=== PATIENT | male | born 1955 | race Caucasian/White ===

== ENCOUNTER → 2018-02-17 13:24 | Outpatient (CLI) | payer OTHER, SELFPAY ==
[2018-02-17 14:46] LABS: Cholesterol 218 mg/dL (140-199); HDL Cholesterol 57 mg/dL (40-60); LDL Cholesterol Calculated 131 mg/dL (<100); Triglycerides 151 mg/dL (35-150)
== END ==
PROVIDERS: Family Provider Family Medicine; PCP Family Medicine; Visit Provider Family Medicine
DX: E78.00 Pure hypercholesterolemia, unspecified (principal)
CPT/HCPCS: 36415; 80061

== ENCOUNTER → 2018-04-24 10:28 | Outpatient (CLI) | payer OTHER, SELFPAY ==
[2018-04-24 15:24] LABS: Cholesterol 180 mg/dL (140-199); HDL Cholesterol 50 mg/dL (40-60); LDL Cholesterol Calculated 105 mg/dL (<100); Triglycerides 124 mg/dL (35-150)
[2018-04-26 17:19] LABS: PSA Post Prostatectomy 0.82 ng/mL
[2018-04-26 22:01] LABS: Testosterone, Free 0.48 ng/dL
== END ==
PROVIDERS: PCP Family Medicine Addiction Medicine; Visit Provider Family Medicine Addiction Medicine
DX: E78.00 Pure hypercholesterolemia, unspecified (principal); R68.82 Decreased libido; Z00.00 Encounter for general adult medical examination without abnormal findings
CPT/HCPCS: 36415; 80061; 84153; 84402

== ENCOUNTER 2018-10-08 16:32 | Emergency (ER) | payer OTHER, SELFPAY ==
[2018-10-08 16:40] VITALS: BP 194/86; PULSE 61; RESP 16; TEMP 36.5; O2SAT 98; BMI 33.2
--- NOTE | 2018-10-08 16:56 | ED.MALEGU ---
HPI - Male Genitourinary General Chief complaint: Urogenital-Male Stated complaint: says kidney stopping or maybe appendix Time Seen by Provider: 10/08/18 16:38 Source: patient Mode of arrival: ambulatory Limitations: no limitations History of Present Illness HPI Narrative: Patient is a 63-year-old male presents with right-sided flank pain radiating to his groin. It started last evening he says it is fairly constant but it comes in waves. He feels like appendicitis. He has been nauseated but no vomiting. No fever. Related Data Previous Rx's Medication Instructions Recorded hydroxyzine HCl 0 mg PO SEE INSTRUCTIONS #30 tab 08/25/17 atorvastatin 40 mg tablet 40 mg PO HS #90 tab 11/15/17 lisinopril 40 mg tablet 40 mg PO QDAY #90 tab 07/17/18 hydrocodone-acetaminophen [[place]] 1 tab PO Q6H PRN #10 tab 10/08/18 ondansetron 4 mg PO Q6-8H PRN #10 tab 10/08/18 Allergies Allergy/AdvReac Type Severity Reaction Status Date / Time No Known Drug Allergies Allergy Verified 10/08/18 17:12 Review of Systems Review of Systems GENERAL: Denies chills, fatigue, malaise, fever, sweats, travel HEENT: Denies sinus pain, ear pain, sore throat, difficulty swallowing, neck pain RESPIRATORY: Denies dyspnea, cough, wheezing, hemoptysis, sputum. CARDIOVASCULAR: Denies chest pain, palpitations, orthopnea, edema GASTROINTESTINAL: Denies nausea, vomiting, abdominal pain, diarrhea, constipation, melena. : see HPI MUSCULOSKELETAL: Denies weakness, joint pain, or bony pain SKIN: No rash, no erythema, no pruritus NEUROLOGIC: Denies weakness, dizziness, headache, numbness, change in speech, confusion PSYCHIATRIC: No concerning psychosocial issues. 12 point review of systems is negative except for those stated above and HPI PFSH Medical History Hyperlipidemia (Acute) Hypertension (Acute) Surgical History History of vasectomy Family History (Updated 08/24/17 @ 00:00 by Angelo Love MD) Brother Cancer Mother Hypertension Stroke Family History Brother Cancer Mother Hypertension Stroke Exam Initial Vital Signs Initial Vital Signs: Vital Signs Temperature 97.7 F 10/08/18 16:40 Pulse Rate 61 10/08/18 16:40 Respiratory Rate 16 10/08/18 16:40 Blood Pressure 194/86 H 10/08/18 16:40 Pulse Oximetry 98 10/08/18 16:40 GENERAL: Tearful adult male in a wheelchair appears in pain HEENT: Head atraumatic,EOMI, pupils reactive, face symmetric, [moist] mucous membranes CARDIOVASCULAR: Regular rate and rhythm without murmurs, rubs or gallops. RESPIRATORY: Breath sounds equal bilaterally, no wheezes rales or rhonchi. ABDOMEN: Soft, right lower quadrant pain, right flank pain no guarding or rebound EXTREMITIES: Normal range of motion, no clubbing or edema. Neurovascularly intact NEUROLOGICAL: Alert and oriented x4.Normal gait and speech. Cranial nerves II through XII grossly intact. SKIN: Warm, dry, no laceration, no petechiae, no rashes or lesions. Course Orders Ordered: Discontinued Medications Hydromorphone HCl (Dilaudid) 0.5 mg IV NOW ONE Stop: 10/08/18 17:01 Last Admin: 10/08/18 17:11 Dose: 0.5 mg Sodium Chloride (Normal Saline 0.9%) 1,000 mls @ 1,000 mls/hr IV CONT ZOYA Last Infusion: 10/08/18 18:25 Dose: 0 mls/hr Admin: 10/08/18 17:11 Dose: 1,000 mls/hr Ondansetron HCl (Zofran) 4 mg IV NOW ONE Stop: 10/08/18 17:01 Last Admin: 10/08/18 17:10 Dose: 4 mg Vital Signs - 8 hr 10/08/18 16:40 Temperature 97.7 F Pulse Rate 61 Respiratory Rate 16 Blood Pressure 194/86 H Pulse Oximetry 98 MDM - Male Genitourinary Lab Data Attestation: I reviewed the patient's lab results. Result diagrams: 10/08/18 16:53 10/08/18 16:53 Lab Results 10/08/18 10/08/18 10/08/18 Range/Units 16:53 16:53 18:07 WBC 9.7 (4.5-11.0) X10^3/uL RBC 5.09 (4.5-5.9) X10^6/uL Hgb 15.8 (13.5-17.5) g/dL Hct 46.5 (41-53) % MCV 91.3 (80-100) fL MCH 30.9 (26-34) PG MCHC 33.9 (30-36) % RDW 12.7 (11.6-14.8) % Plt Count 183 (150-400) X10^3/uL Neut % (Auto) 84.7 H (50-75) % Lymph % (Auto) 5.5 L (25-40) % [place] % (Auto) 9.3 (3-14) % Eos % (Auto) 0.3 L (2-4) % Baso % (Auto) 0.2 (0-2) % Neut # (Auto) 8200 H (8150-0196) /uL Lymph # (Auto) 500 L (3403-3525) /uL [place] # (Auto) 900 (0-900) /uL Eos # (Auto) 0 (0-450) /uL Baso # (Auto) 0 (0-100) /uL Sodium 137 (137-145) mmol/L Potassium 3.8 (3.4-5.1) mmol/L Chloride 104 (98-107) mmol/L Carbon Dioxide 23 (22-32) mmol/L BUN 21 H (9-20) mg/dL Creatinine 1.80 H (0.66-1.25) mg/dL Estimated GFR 38.3 L (>60) mL/min BUN/Creatinine Ratio 11.7 (6-22) Glucose 128 H (80-110) mg/dL Calcium 10.4 H (8.4-10.2) mg/dL Total Bilirubin 1.3 (0.2-1.3) mg/dL AST 25 (17-59) IU/L ALT 40 (21-72) IU/L Alkaline Phosphatase 63 (38-126) U/L Total Protein 7.4 (6.3-8.2) g/dL Albumin 4.3 (3.5-5.0) g/dL Globulin 3.1 (1.7-4.1) g/dL Albumin/Globulin Ratio 1.4 (1.0-2.8) Lipase 401 H (23-300) U/L Urine Ictotest Negative (Negative) Urine RBC 10-30/hpf H (0-5/HPF) Urine WBC 1-5/hpf (0-5/HPF) Ur Squamous Epith Cells None seen (0-5/HPF) Calcium Oxalate Crystal Few H Urine Bacteria Moderate (10-30) H (None) Hyaline Casts 0-1/lpf (None) Ur Culture Indicated? Cult not indicated Urine Dip Bedside Urine Glucose Negative Bedside Urine Bilirubin + 1 Bedside Urine Ketone - Negative Urine Specific [place] 1.030 Bedside Urine Occult Blood +++ Bedside Urine pH 5.0 Bedside Urine Protein +/- 15 Bedside Urine Urobilinogen +/- 1mg Bedside Urine Nitrite - Negative Bedside Urine Leukocytes - Negative Esterase Imaging Data CT scan - abdomen: Radiologist's impression: PROCEDURE: CT KIDNEY URETER BLADDER (KUB) INDICATIONS: right flank pain TECHNIQUE: Noncontrast 5 mm thick sections acquired from the diaphragms to the symphysis. 5 mm thick coronal and sagittal reformats were then performed. For radiation dose reduction, the following was used: automated exposure control, adjustment of mA and/or kV according to patient size. COMPARISON: [facility], [place], RENAL COMPLETE, 04/28/2016, 13:33. [facility], [place], KIDNEY/ URETER/BLADDER, 04/21/2016, 10:20. FINDINGS: Image quality: Excellent. Lung bases: Lung bases are clear. Heart size is normal. Urinary system: There is a 3 mm obstructing stone seen within the right mid ureter, with associated moderate right-sided hydronephrosis and hydroureter. No left-sided hydronephrosis is seen. There is a 1 mm nonobstructing stone seen on the right side. The kidneys demonstrate normal sizes. No focal bladder wall thickening is seen. No calcified bladder stones are seen. Other solid organs: Liver is normal in size. Gallbladder wall is not thickened. Pancreas is normal in contours. Spleen is normal in size. No adrenal nodules. Peritoneum and bowel: Unenhanced bowel loops demonstrate normal wall thickness and caliber. No free fluid or air. Incidental note is made of a normal-appearing appendix. Diverticulosis is seen, without findings of active diverticulitis. Nodes and vessels: No retroperitoneal or mesenteric adenopathy by size criteria. Aorta and inferior vena cava are normal in caliber. Atherosclerotic calcification is noted. Abdominal wall: No ventral hernias. Pelvis: No free pelvic fluid. No inguinal hernias or adenopathy. Bones: No suspicious bony lesions. No vertebral body compression fractures. IMPRESSION: There is a 3 mm obstructing stone seen within the mid right ureter. There is associated moderate right-sided hydroureter and hydronephrosis. There is a 1 mm nonobstructing right-sided kidney stone seen. Incidental note is made of: Normal appendix Diverticulosis is seen, without findings of active diverticulitis. Dictated by: Virgilio Eduardo M.D. on 10/08/2018 at 16:29 Discharge Plan Departure Patient Disposition: Home Clinical Impression: Kidney stone on right side Discharge Date/Time: 10/08/18 18:27 Interventions: ED Discharge Assessment Last Done: 10/08/18 18:25 Instructions: DI for Kidney Stones Activity Restrictions/Additional Instructions: *Increase fluid intake *Call PCP to schedule follow-up. You may require urology consultation Strain urine, try to catch stone -If you should have fever, or pain is uncontrolled with medication at home or any other concerning symptoms return to ER for further evaluation MEDICATIONS Take naproxen 500 mg mg every 12 hours as needed for pain Take [place] every 6 hours if needed for severe pain Take Zofran every 4-6 hours if needed for nausea--sent to [facility] CONTROLLED SUBSTANCE DISCHARGE (Narcotoic/benzodiazepine) 1. You have been prescribed narcotic medications, it does have acetaminophen/Tylenol/paracetamol in it so do not take extra Tylenol or Tylenol containing products 2. Please understand that we cannot provide further refills of narcotics, benzodiazepines or controlled substances through the ED and her pain management will need to be through your provider. 3. While on these medications you cannot drive or operate heavy machinery. 4. You cannot sign legal documents or perform any duties such as this. 5. As long as you're taking opiate pain medications he should also be taking a stool softener such as Colace, Dulcolax, MiraLAX or prune juice, to help avoid constipation. Prescriptions: New hydrocodone-acetaminophen [[place]] 5-325 mg tablet 1 tab PO Q6H PRN (Reason: pain) Qty: 10 RF: 0 ondansetron 4 mg tablet,disintegrating 4 mg PO Q6-8H PRN (Reason: nausea and vomiting) Qty: 10 RF: 0 No Action hydroxyzine HCl 25 MG tablet PO SEE INSTRUCTIONS Qty: 30 RF: 5 atorvastatin 40 mg tablet 40 mg PO HS Qty: 90 RF: 1 lisinopril 40 mg tablet 40 mg PO QDAY Qty: 90 RF: 0 Referrals: Reuben Mcbride MD [Primary Care Provider] -
--- NOTE | 2018-10-08 17:00 | ED_ITS ---
HPI - Male Genitourinary General Chief complaint: Urogenital-Male Stated complaint: says kidney stopping or maybe appendix Time Seen by Provider: 10/08/18 16:38 Source: patient Mode of arrival: ambulatory Limitations: no limitations History of Present Illness HPI Narrative: Patient is a 63-year-old male presents with right-sided flank pain radiating to his groin. It started last evening he says it is fairly con stant but it comes in waves. He feels like appendicitis. He has been nauseated but no vomiting. No fever. Related Data Previous Rx's Medication Instructions Recorded hydroxyzine HCl 0 mg PO SEE INSTRUCTIONS #30 tab 08/25/17 atorvastatin 40 mg tablet 40 mg PO HS #90 tab 11/15/17 lisinopril 40 mg tablet 40 mg PO QDAY #90 tab 07/17/18 hydrocodone-acetaminophen [[place]] 1 tab PO Q6H PRN #10 tab 10/08/18 ondansetron 4 mg PO Q6-8H PRN #10 tab 10/08/18 Allergies Allergy/AdvReac Type Severity Reaction Status Date / Time No Known Drug Allergies Allergy Verified 10/08/18 17:12 Review of Systems Review of Systems GENERAL: Denies chills, fatigue, malaise, fever, sweats, travel HEENT: Denies sinus pain, ear pain, sore throat, difficulty swallowing, neck pain RESPIRATORY: Denies dyspnea, cough, wheezing, hemoptysis, sputum. CARDIOVASCULAR: Denies chest pain, palpitations, orthopnea, edema GASTROINTESTINAL: Denies nausea, vomiting, abdominal pain, diarrhea, constipation, melena. : see HPI MUSCULOSKELETAL: Denies weakness, joint pain, or bony pain SKIN: No rash, no erythema, no pruritus NEUROLOGIC: Denies weakness, dizziness, headache, numbness, change in speech, confusion PSYCHIATRIC: No concerning psychosocial issues. 12 point review of systems is negative except for those stated above and HPI PFSH Medical History Hyperlipidemia (Acute) Hypertension (Acute) Surgical History History of vasectomy Family History (Updated 08/24/17 @ 00:00 by Angelo Love MD) Brother Cancer Mother Hypertension Stroke Family History Brother Cancer Mother Hypertension Stroke Exam Initial Vital Signs Initial Vital Signs: Vital Signs Temperature 97.7 F 10/08/18 16:40 Pulse Rate 61 10/08/18 16:40 Respiratory Rate 16 10/08/18 16:40 Blood Pressure 194/86 H 10/08/18 16:40 Pulse Oximetry 98 10/08/18 16:40 GENERAL: Tearful adult male in a wheelchair appears in pain HEENT: Head atraumatic,EOMI, pupils reactive, face symmetric, [moist] mucous membranes CARDIOVASCULAR: Regular rate and rhythm without murmurs, rubs or gallops. RESPIRATORY: Breath sounds equal bilaterally, no wheezes rales or rhonchi. ABDOMEN: Soft, right lower quadrant pain, right flank pain no guarding or rebound EXTREMITIES: Normal range of motion, no clubbing or edema. Neurovascularly intact NEUROLOGICAL: Alert and oriented x4.Normal gait and speech. Cranial nerves II through XII grossly intact. SKIN: Warm, dry, no laceration, no petechiae, no rashes or lesions. Course Orders Ordered: Discontinued Medications Hydromorphone HCl (Dilaudid) 0.5 mg IV NOW ONE Stop: 10/08/18 17:01 Last Admin: 10/08/18 17:11 Dose: 0.5 mg Sodium Chloride (Normal Saline 0.9%) 1,000 mls @ 1,000 mls/hr IV CONT ZOYA Last Infusion: 10/08/18 18:25 Dose: 0 mls/hr Admin: 10/08/18 17:11 Dose: 1,000 mls/hr Ondansetron HCl (Zofran) 4 mg IV NOW ONE Stop: 10/08/18 17:01 Last Admin: 10/08/18 17:10 Dose: 4 mg Vital Signs - 8 hr 10/08/18 16:40 Temperature 97.7 F Pulse Rate 61 Respiratory Rate 16 Blood Pressure 194/86 H Pulse Oximetry 98 MDM - Male Genitourinary Lab Data Attestation: I reviewed the patient's lab results. Result diagrams: 10/08/18 16:53 10/08/18 16:53 Lab Results 10/08/18 10/08/18 10/08/18 Range/Units 16:53 16:53 18:07 WBC 9.7 (4.5-11.0) X10^3/uL RBC 5.09 (4.5-5.9) X10^6/uL Hgb 15.8 (13.5-17.5) g/dL Hct 46.5 (41-53) % MCV 91.3 (80-100) fL MCH 30.9 (26-34) PG MCHC 33.9 (30-36) % RDW 12.7 (11.6-14.8) % Plt Count 183 (150-400) X10^3/uL Neut % (Auto) 84.7 H (50-75) % Lymph % (Auto) 5.5 L (25-40) % [place] % (Auto) 9.3 (3-14) % Eos % (Auto) 0.3 L (2-4) % Baso % (Auto) 0.2 (0-2) % Neut # (Auto) 8200 H (9645-7087) /uL Lymph # (Auto) 500 L (2704-6441) /uL [place] # (Auto) 900 (0-900) /uL Eos # (Auto) 0 (0-450) /uL Baso # (Auto) 0 (0-100) /uL Sodium 137 (137-145) mmol/L Potassium 3.8 (3.4-5.1) mmol/L Chloride 104 (98-107) mmol/L Carbon Dioxide 23 (22-32) mmol/L BUN 21 H (9-20) mg/dL Creatinine 1.80 H (0.66-1.25) mg/dL Estimated GFR 38.3 L (>60) mL/min BUN/Creatinine Ratio 11.7 (6-22) Glucose 128 H (80-110) mg/dL Calcium 10.4 H (8.4-10.2) mg/dL Total Bilirubin 1.3 (0.2-1.3) mg/dL AST 25 (17-59) IU/L ALT 40 (21-72) IU/L Alkaline Phosphatase 63 (38-126) U/L Total Protein 7.4 (6.3-8.2) g/dL Albumin 4.3 (3.5-5.0) g/dL Globulin 3.1 (1.7-4.1) g/dL Albumin/Globulin Ratio 1.4 (1.0-2.8) Lipase 401 H (23-300) U/L Urine Ictotest Negative (Negative) Urine RBC 10-30/hpf H (0-5/HPF) Urine WBC 1-5/hpf (0-5/HPF) Ur Squamous Epith Cells None seen (0-5/HPF) Calcium Oxalate Crystal Few H Urine Bacteria Moderate (10-30) H (None) Hyaline Casts 0-1/lpf (None) Ur Culture Indicated? Cult not indicated Urine Dip Bedside Urine Glucose Negative Bedside Urine Bilirubin + 1 Bedside Urine Ketone - Negative Urine Specific [place] 1.030 Bedside Urine Occult Blood +++ Bedside Urine pH 5.0 Bedside Urine Protein +/- 15 Bedside Urine Urobilinogen +/- 1mg Bedside Urine Nitrite - Negative Bedside Urine Leukocytes - Negative Esterase Imaging Data CT scan - abdomen: Radiologist's impression: PROCEDURE: CT KIDNEY URETER BLADDER (KUB) INDICATIONS: right flank pain TECHNIQUE: Noncontrast 5 mm thick sections acquired from the diaphragms to the symphysis. 5 mm thick coronal and sagittal reformats were then performed. For radiation dose reduction, the following was used: automated exposure control, adjustment of mA and/or kV according to patient size. COMPARISON: [facility], [place], RENAL COMPLETE, 04/28/2016, 13:33. [facility], [place], KIDNEY/ URETER/BLADDER, 04/21/2016, 10:20. FINDINGS: Image quality: Excellent. Lung bases: Lung bases are clear. Heart size is normal. Urinary system: There is a 3 mm obstructing stone seen within the right mid ureter, with associated moderate right-sided hydronephrosis and hydroureter. No left-sided hydronephrosis is seen. There is a 1 mm nonobstructing stone seen on the right side. The kidneys demonstrate normal sizes. No focal bladder wall thickening is seen. No calcified bladder stones are seen. Other solid organs: Liver is normal in size. Gallbladder wall is not thickened. Pancreas is normal in contours. Spleen is normal in size. No adrenal nodules. Peritoneum and bowel: Unenhanced bowel loops demonstrate normal wall thickness and caliber. No free fluid or air. Incidental note is made of a normal-appearing appendix. Diverticulosis is seen, without findings of active diverticulitis. Nodes and vessels: No retroperitoneal or mesenteric adenopathy by size criteria. Aorta and inferior vena cava are normal in caliber. Atherosclerotic calcification is noted. Abdominal wall: No ventral hernias. Pelvis: No free pelvic fluid. No inguinal hernias or adenopathy. Bones: No suspicious bony lesions. No vertebral body compression fractures. IMPRESSION: There is a 3 mm obstructing stone seen within the mid right ureter. There is associated moderate right-sided hydroureter and hydronephrosis. There is a 1 mm nonobstructing right-sided kidney stone seen. Incidental note is made of: Normal appendix Diverticulosis is seen, without findings of active diverticulitis. Dictated by: Virgilio Eduardo M.D. on 10/08/2018 at 16:29 Discharge Plan Departure Patient Disposition: Home Clinical Impression: Kidney stone on right side Discharge Date/Time: 10/08/18 18:27 Interventions: ED Discharge Assessment Last Done: 10/08/18 18:25 Instructions: DI for Kidney Stones Activity Restrictions/Additional Instructions: *Increase fluid intake *Call PCP to schedule follow-up. You may require urology consultation Strain urine, try to catch stone -If you should have fever, or pain is uncontrolled with medication at home or any other concerning symptoms return to ER for further evaluation MEDICATIONS Take naproxen 500 mg mg every 12 hours as needed for pain Take [place] every 6 hours if needed for severe pain Take Zofran every 4-6 hours if needed for nausea--sent to [facility] CONTROLLED SUBSTANCE DISCHARGE (Narcotoic/benzodiazepine) 1. You have been prescribed narcotic medications, it does have acetaminophen/Tylenol/paracetamol in it so do not take extra Tylenol or Tylenol containing products 2. Please understand that we cannot provide further refills of narcotics, benzodiazepines or controlled substances through the ED and her pain management will need to be through your provider. 3. While on these medications you cannot drive or operate heavy machinery. 4. You cannot sign legal documents or perform any duties such as this. 5. As long as you're taking opiate pain medications he should also be taking a stool softener such as Colace, Dulcolax, MiraLAX or prune juice, to help avoid constipation. Prescriptions: New hydrocodone-acetaminophen [[place]] 5-325 mg tablet 1 tab PO Q6H PRN (Reason: pain) Qty: 10 RF: 0 ondansetron 4 mg tablet,disintegrating 4 mg PO Q6-8H PRN (Reason: nausea and vomiting) Qty: 10 RF: 0 No Action hydroxyzine HCl 25 MG tablet PO SEE INSTRUCTIONS Qty: 30 RF: 5 atorvastatin 40 mg tablet 40 mg PO HS Qty: 90 RF: 1 lisinopril 40 mg tablet 40 mg PO QDAY Qty: 90 RF: 0 Referrals: Reuben Mcbride MD [Primary Care Provider] -
[2018-10-08 17:09] LABS: Add Manual Diff / Slide Review NO; Basophils Absolute Auto 0 /uL (0-100); Basophils Percent Auto 0.2 % (0-2); Eosinophils Absolute Auto 0 /uL (0-450); Eosinophils Percent Auto 0.3 % (2-4); Hematocrit 46.5 % (41-53); Hemoglobin 15.8 g/dL (13.5-17.5); Lymphocytes Absolute Auto 500 /uL (1100-4500); Lymphocytes Percent Auto 5.5 % (25-40); Mean Corpuscular HGB Conc 33.9 % (30-36); Mean Corpuscular Hemoglobin 30.9 PG (26-34); Mean Corpuscular Volume 91.3 fL (80-100); Monocytes Absolute Auto 900 /uL (0-900); Monocytes Percent Auto 9.3 % (3-14); Neutrophils Absolute Auto 8200 /uL (1500-7000); Neutrophils Percent Auto 84.7 % (50-75); Platelet Count 183 X10^3/uL (150-400); Red Blood Cell Count 5.09 X10^6/uL (4.5-5.9); Red Cell Distribution Width 12.7 % (11.6-14.8); White Blood Cell Count 9.7 X10^3/uL (4.5-11.0)
[2018-10-08] MEDS: ONDANSETRON 4 MG/2 ML INJ IV (17:10)
[2018-10-08] MEDS: HYDROMORPHONE 1 MG INJ 0.5 MG IV (17:11)
[2018-10-08] MEDS: SODIUM CHLORIDE 0.9% 1,000 ML 1000 ML IV (17:11)
[2018-10-08 17:13] LABS: Alanine Aminotransferase 40 IU/L (21-72); Albumin 4.3 g/dL (3.5-5.0); Albumin Globulin Ratio 1.4 (1.0-2.8); Alkaline Phosphatase 63 U/L (38-126); Aspartate Aminotransferase 25 IU/L (17-59); BUN Creatinine Ratio 11.7 (6-22); Bilirubin Total 1.3 mg/dL (0.2-1.3); Blood Urea Nitrogen 21 mg/dL (9-20); Calcium 10.4 mg/dL (8.4-10.2); Carbon Dioxide 23 mmol/L (22-32); Chloride 104 mmol/L (98-107); Estimated Glomerular Filt Rate 38.3 mL/min (>60); Globulin 3.1 g/dL (1.7-4.1); Glucose 128 mg/dL (80-110); HEMOLYSIS < 15 (0-50); Lipase 401 U/L (23-300); Potassium 3.8 mmol/L (3.4-5.1); Sodium 137 mmol/L (137-145); Total Protein 7.4 g/dL (6.3-8.2)
[2018-10-08 18:25] VITALS: BP 145/74; PULSE 63; RESP 16; O2SAT 99
[2018-10-08 18:31] LABS: Ictotest Urine Negative (Negative); RBC Urine 10-30/HPF (0-5/HPF); WBC Urine 1-5/HPF (0-5/HPF)
[2018-10-08 18:32] LABS: Bacteria Urine Moderate (10-30); Calcium Oxalate Crystals Urine Few; Culture Indicated Urine Cult Not Indicated; Hyaline Casts Urine 0-1/LPF; Squamous Epithelial Cell Urine None Seen (0-5/HPF)
== END 2018-10-08 18:27 | disposition home or self-care (01) ==
PROVIDERS: Emergency Provider Emergency Medicine; Family Provider Family Medicine; PCP Family Medicine Addiction Medicine
DX: N20.0 Calculus of kidney (principal)
CPT/HCPCS: 36591; 74176; 80053; 81003; 81015; 83690; 85025; 96361; 96374; 96375; 99283; 99284; J1170; J2405

== ENCOUNTER → 2018-11-30 11:17 | Outpatient (CLI) | payer OTHER, SELFPAY ==
[2018-11-30 12:51] LABS: Cholesterol 176 mg/dL (140-199); HDL Cholesterol 49 mg/dL (40-60); LDL Cholesterol Calculated 93 mg/dL (<100); Triglycerides 169 mg/dL (35-150)
== END ==
PROVIDERS: PCP Internal Medicine; Visit Provider Internal Medicine
DX: E78.00 Pure hypercholesterolemia, unspecified (principal)
CPT/HCPCS: 36415; 80061

== ENCOUNTER 2019-01-24 12:46 | Day surgery (SDC) | payer OTHER, SELFPAY ==
[2019-01-24] VITALS (11 sets, daily range): BP systolic 128–152; BP diastolic 72–82; PULSE 61–73; RESP 10–20; TEMP 36.4–36.9; O2SAT 94–99; BMI 33.2
[2019-01-24] MEDS: LACTATED RINGERS 1,000 ML 42 ML IV ×2 (13:20→16:16)
[2019-01-24] MEDS: metroNIDAZOLE 500 MG/100 ML PIGGYBACK 100 MG IV (13:21)
--- NOTE | 2019-01-24 13:21 | PM.HP.1 ---
History of Present Illness History of Present Illness Date Patient Seen: 01/24/19 Time Patient Seen: 13:21 Chief complaint: [id number] Narrative: Patient seen and examined Plan for internal sphincterotomy for persistent anal fissure Patient History Medical History (Updated 01/18/19 @ 13:35 by Fanny Montgomery RN) Anal fissure (Acute) Hyperlipidemia (Acute) Hypertension (Acute) Surgical History (Updated 01/18/19 @ 13:35 by Fanny Montgomery RN) History of arthroplasty of left shoulder (Acute ~2017) History of arthroplasty of right shoulder (Acute) History of vasectomy Family History Brother Cancer Mother Hypertension Stroke Social History household members: spouse Smoking Status: Former smoker alcohol intake: current Family & Social History Social History: household members spouse Tobacco & Substance use: Smoking Status Former smoker alcohol intake current alcohol intake frequency a few times a week Substance Use Type does not use Meds Home Medications and Allergies Home Medications Medication Instructions Recorded Confirmed Type atorvastatin 40 mg tablet 40 mg PO HS #90 tab 11/15/17 01/24/19 Rx lisinopril 40 mg tablet 40 mg PO QDAY #90 tab 07/17/18 01/24/19 Rx Allergies Allergy/AdvReac Type Severity Reaction Status Date / Time No Known Drug Allergies Allergy Verified 01/24/19 13:02 Exam Vital Signs (past 8 hours): - 01/24/19 13:12 Temperature 97.6 F Pulse Rate 65 Respiratory Rate 16 Blood Pressure 137/76 Pulse Oximetry 97 Oxygen Delivery Method Room Air
[2019-01-24] MEDS: CEFTRIAXONE 2 GM/50 ML FROZ.PIGGY IV (13:30)
--- NOTE | 2019-01-24 13:45 | SUR.OPER ---
Prone on padded OR bed, head in foam head support, gel chest rolls, gel pad under knees, pillow under lower legs, toes free of pressure, arms secured on padded arm boards at <90 degrees abduction. Safety belt at thigh.
[2019-01-24] MEDS: BUPIVACAINE 0.25% W/ EPI 30 ML VIAL INJ (13:55)
[2019-01-24] MEDS: DIBUCAINE 1% OINT 28 GM 1 APPLIC TOP (13:56)
--- NOTE | 2019-01-24 14:17 | PM.OP.1 ---
Operative Date/Time/Diagnoses Date of procedure: 01/24/19 Time of procedure: 14:17 Pre-op diagnosis: Anal fissure Post-op diagnosis: same Procedure & Clinicians Procedure: Left lateral internal sphincterotomy Same procedure as scheduled: Yes Indications: 63-year-old man presented with a right-sided anal fissure -markedly painful, did not heal after 2.5 months of nifedipine compound ointment applied diligently. Persistent symptoms. Surgeon: Jamal Barry Click Yes if Unassisted: Yes Anesthesia Type: General Operative Notes Findings: Tight internal anal sphincter -divided on the anterior left side Closure Type: not applicable Specimen(s): none sent Estimated Blood Loss (mL): 10 Procedure in detail: Patient was taken to the operating room his intubated without incident he was placed in the prone katelynn-knife position a time-out was completed. Digital rectal exam was performed there are no masses identified -even with the general anesthetic on board his anal sphincter was tight. The story rib retractor was placed within the rectum there was a large anal fissure on the right posterior side -with a small associated skin tag. The fissure itself was too close to the lateral position to do a lateral sphincterotomy on the right side. As a consequence I inspected the left side -there was a small pathologic hemorrhoid on the left lateral column -I chose a position free of the majority of the hemorrhoidal vessels just anterior of it. In this location identified the intersphincteric groove by palpation -given the high internal sphincter tone this was very obvious. I marked a 1.5 cm radial incision over it. This was opened using cut cautery. In the the process of this a small somewhat pronounced vein was bovied across -several attempts to coagulate it was not successful -region was subsequently controlled with a [id number] 3 0 chromic suture. With a minimal of blunt dissection the intersphincteric groove was clearly seen -the small blunt clamp was then inserted into the intersphincteric group with the tips directed medially, the clamp was then rotated to elevate the tips -scooping up the internal sphincter and elevating it towards the incision in the process. These white fibers of the internal sphincter were then divided with cautery. I then inspected the small cavity -there was several persistent internal sphincter fibers more superiorly in the vicinity of the dentate line -these were divided free hand with cautery. I then checked anal sphincter tone -this was much reduced. Using 30 mL of 0.25% bupivacaine with epinephrine perianal block was performed. Gelf[place]am was then obtained a rolled into a small roll lubricated with lidocaine ointment and inserted into the anal canal to provide some pressure hemostasis. Incision was left open Patient was extubated and brought to PACU without incident Complications: none Post-operative Condition: stable Disposition: PACU Plan for aftercare: PACU then home
[2019-01-24] MEDS: fentaNYL 100 MCG/2 ML INJ 50 MCG IV ×2 (14:26→14:40)
[2019-01-24] MEDS: KETOROLAC 30 MG/ML VIAL IV (14:39)
[2019-01-24] MEDS: HYDROMORPHONE 2 MG INJ 0.5 MG IV (14:50)
[2019-01-24] MEDS: OXYCODONE/ACETAMINOPHEN 5/325 TABLET 1 TAB PO ×2 (15:13→15:56)
--- NOTE | 2019-01-24 16:07 | SUR.PHASEII ---
Assumed care from
--- NOTE | 2019-01-24 16:08 | SUR.PHASEII ---
Assumed care bridgetteshane Mendosa, pt c/o return of his headache 09/29, 2nd percocet given. Report given to STEVE Valencia
== END 2019-01-24 16:30 | disposition home or self-care (01) ==
PROVIDERS: PCP Internal Medicine; Visit Provider Surgery
PROC: (CPT 46080; principal; 2019-01-24 14:45)
DX: K60.1 Chronic anal fissure (principal)
CPT/HCPCS: 46080; J0330; J0696; J1100; J1170; J1885; J2405; J2704; J3010

== ENCOUNTER → 2019-03-19 12:16 | Outpatient (CLI) | payer OTHER, SELFPAY ==
[2019-03-19 13:51] LABS: Blood Urea Nitrogen 19 mg/dL (9-20); Calcium 9.8 mg/dL (8.4-10.2); Carbon Dioxide 26 mmol/L (22-32); Chloride 104 mmol/L (98-107); Cholesterol 180 mg/dL (140-199); Estimated Glomerular Filt Rate > 60.0 mL/min (>60); Glucose 93 mg/dL (80-110); HDL Cholesterol 54 mg/dL (40-60); HEMOLYSIS < 15 (0-50); LDL Cholesterol Calculated 95 mg/dL (<100); Potassium 4.5 mmol/L (3.4-5.1); Sodium 138 mmol/L (137-145); Triglycerides 153 mg/dL (35-150)
[2019-03-19 14:22] LABS: Prostate Specific Antigen 0.589 ng/mL (0.10-4.00)
== END ==
PROVIDERS: PCP Internal Medicine; Visit Provider Student in an Organized Health Care Education/Training Program
DX: Z12.5 Encounter for screening for malignant neoplasm of prostate (principal); E78.5 Hyperlipidemia, unspecified; I10 Essential (primary) hypertension; E55.9 Vitamin D deficiency, unspecified
CPT/HCPCS: 36415; 80048; 80061; 82306; 84153

== ENCOUNTER → 2019-05-01 14:27 | Outpatient (CLI) | payer OTHER, SELFPAY ==
--- NOTE | 2019-05-01 14:28 | DI.RAD.S_ITS ---
PROCEDURE: XR FOOT RT MIN 3V INDICATIONS: Foot pain TECHNIQUE: 3 views of the foot were acquired. COMPARISON: None. FINDINGS: Bones: No fractures or dislocations. No suspicious bony lesions. Soft tissues: No tibiotalar joint effusion. Achilles tendon appears normal. IMPRESSION: No definite radiographic abnormality. If pain persists with conservative management, consider cross sectional imaging such as CT or MRI for further assessment. Dictated by: Gold MORALES Interpreted: Evonne Mcdonough MD on 05/01/2019 at 17:41 Approved by: Evonne Mcdonough M.D. on 05/01/2019 at 18:37
== END ==
PROVIDERS: PCP Student in an Organized Health Care Education/Training Program; Visit Provider Student in an Organized Health Care Education/Training Program
DX: M79.671 Pain in right foot (principal)
CPT/HCPCS: 73630

== ENCOUNTER → 2019-11-14 13:29 | Outpatient (CLI) | payer OTHER, SELFPAY ==
--- NOTE | 2019-11-14 | DI.MRI.S_ITS ---
PROCEDURE: MR LUMBAR SPINE WO CON INDICATIONS: Spondylosis without myelopathy or radiculopathy, l TECHNIQUE: Noncontrast sagittal T1 spin echo and T2 fast echo, sagittal STIR, axial T1 and T2 fast spin echo through the lumbar spine. In cases with scoliosis, additional coronal T2 fast spin echo may be performed. COMPARISON: [facility], MR, MR LUMBAR SPINE WITHOUT CONTRAST, 01/19/2018, 9:45. [facility], CR, XR LUMBAR SPINE 2 OR 3 VIEWS, 01/09/2018, 9:44. FINDINGS: Image quality: Excellent. Alignment and Curvature: 5 lumbar type vertebral bodies are present by plain film. There is normal bony alignment. Bone Marrow: Marrow is of normal overall signal. No acute vertebral body compression fractures. Spinal Cord: Conus medullaris terminates at the L1-L2 disc space level. Visualized cord demonstrates normal signal and size. Paraspinous Soft Tissues: No paravertebral masses. L1-L2: Mild disc desiccation. Mild facet and ligamentu no change. m flavum hypertrophy. Mild canal stenosis. Mild bilateral foraminal stenosis. L2-L3: Mild disc height loss and desiccation. Mild diffuse disc bulge. Mild facet and ligamentum flavum hypertrophy. Mild epidural lipomatosis. Moderate canal stenosis. Mild bilateral foraminal stenosis. No change. L3-L4: Mild disc height loss and desiccation. Mild diffuse disc bulge. Mild facet and ligament flavum hypertrophy. Mild epidural lipomatosis. Mild canal stenosis. Mild bilateral foraminal stenosis. No change. L4-L5: Mild disc height loss and desiccation. Mild diffuse disc bulge with superimposed small right posterolateral broad-based protrusion. Mild facet hypertrophy. Mild epidural lipomatosis. Mild canal stenosis. There is increased, moderate right foraminal stenosis. No change in mild left foraminal stenosis. L5-S1: Mild bilateral facet hypertrophy. No significant canal, nor foraminal stenosis. IMPRESSION: 1. Multilevel degenerative disc and facet disease, as well as ligamentum flavum hypertrophy and epidural lipomatosis. 2. Multilevel canal stenoses, worst at L2-L3, where there is moderate canal stenosis. 3. Multilevel foraminal stenoses, worst on the right at L4-L5, where there is moderate foraminal stenosis. Dictated by: Herrera Saeed M.D. on 11/14/2019 at 15:35 Approved by: Herrera Saeed M.D. on 11/14/2019 at 15:42
== END ==
PROVIDERS: PCP Student in an Organized Health Care Education/Training Program; Referring Provider Student in an Organized Health Care Education/Training Program; Visit Provider Physical Medicine & Rehabilitation
DX: M47.816 Spondylosis without myelopathy or radiculopathy, lumbar region (principal); E88.2 Lipomatosis, not elsewhere classified; M48.061 Spinal stenosis, lumbar region without neurogenic claudication
CPT/HCPCS: 72148

== ENCOUNTER → 2020-10-16 15:16 | Outpatient (CLI) | payer MEDICARE, SELFPAY ==
--- NOTE | 2020-10-16 15:23 | DI.MRI.S_ITS ---
PROCEDURE: MR LUMBAR SPINE WO CON INDICATIONS: Strain of muscle, fascia and tendon of lower back, TECHNIQUE: Noncontrast sagittal T1 spin echo and T2 fast echo, sagittal STIR, axial T1 and T2 fast spin echo through the lumbar spine. In cases with scoliosis, additional coronal T2 fast spin echo may be performed. COMPARISON: [facility], MR, MR LUMBAR SPINE WO CON, 11/14/2019, 13:46. FINDINGS: Image quality: Excellent. Alignment and Curvature: Straightening of the normal lordotic curvature. Bone Marrow: Chronic mild anterior compression fracture of L2 with no associated acute marrow edema. No acute fracture is seen. Multilevel degenerative endplate sclerosis and spurring. Diffuse facet arthropathy. Spinal Cord: Conus medullaris terminates at the L1-L2 level. Visualized cord demonstrates normal signal and size. Paraspinous Soft Tissues: No paravertebral masses. T12-L1: Normal appearance. L1-L2: Mild canal narrowing. Partial effacement of both lateral recesses with bilaterally symmetric appearance. This has progressed since the prior study. Mild bilateral foraminal narrowing which is grossly unchanged L2-L3: Dorsal epidural lipomatosis. There is bews-ph-fwxbngds canal narrowing. Partial effacement of both lateral recesses with bilaterally symmetric appearance. Mild right foraminal stenosis. Moderate to severe left foraminal stenosis with nerve root compression, which has progressed since the prior study dated 11/14/19. L3-L4: Mild dorsal epidural lipomatosis. Mild canal narrowing. Partial effacement of both lateral recesses with bilaterally symmetric appearance. Mild right foraminal narrowing. Moderate left foraminal stenosis with no definite nerve root compression. L4-L5: Mild dorsal epidural lipomatosis. Mild canal narrowing. Partial effacement of both lateral recesses with bilaterally symmetric appearance. Moderate right foraminal stenosis with borderline nerve root compression. Mild left foraminal stenosis. Overall, no interval change. L5-S1: No canal narrowing. No lateral recess narrowing. No definite foraminal stenoses. IMPRESSION: Interval progression in moderate to severe left L2-L3 foraminal stenosis since 11/14/19. Progression of L1-L2 canal narrowing since the prior study. Interval development of mild L2 compression fracture with no associated marrow edema. Therefore this finding is chronic. Elsewhere, grossly unchanged appearance as detailed above by spinal level. Dictated by: Young Epperson M.D. on 10/16/2020 at 16:03 Approved by: Young Epperson M.D. on 10/16/2020 at 16:10
== END ==
PROVIDERS: PCP Student in an Organized Health Care Education/Training Program; Referring Provider Physical Medicine & Rehabilitation; Visit Provider Physical Medicine & Rehabilitation
DX: S39.012D Strain of muscle, fascia and tendon of lower back, subsequent encounter (principal); M48.061 Spinal stenosis, lumbar region without neurogenic claudication; M48.56XA Collapsed vertebra, not elsewhere classified, lumbar region, initial encounter for fracture
CPT/HCPCS: 72148

== ENCOUNTER → 2020-11-07 09:03 | Outpatient (CLI) | payer MEDICARE, OTHER, SELFPAY ==
[2020-11-07 10:43] LABS: Alanine Aminotransferase 21 IU/L (<50); Albumin 3.8 g/dL (3.5-5.0); Albumin Globulin Ratio 1.4 (1.0-2.8); Alkaline Phosphatase 49 U/L (38-126); Aspartate Aminotransferase 24 IU/L (17-59); BUN Creatinine Ratio 15.3 (6-22); Blood Urea Nitrogen 15 mg/dL (9-20); Calcium 10.1 mg/dL (8.4-10.2); Carbon Dioxide 24 mmol/L (22-32); Chloride 106 mmol/L (98-107); Estimated Glomerular Filt Rate > 60.0 mL/min (>60); Globulin 2.7 g/dL (1.7-4.1); Glucose 99 mg/dL (80-110); HEMOLYSIS < 15 (0-50); Potassium 4.3 mmol/L (3.4-5.1); Sodium 136 mmol/L (137-145); Total Protein 6.5 g/dL (6.3-8.2)
[2020-11-07 11:12] LABS: Prostate Specific Antigen Scrn 0.793 ng/mL (0.1-4.0)
[2020-11-07 11:13] LABS: Appearance Urine UA SL CLOUDY; Bilirubin Urine UA NEGATIVE (NEGATIVE); Glucose Urine UA NEGATIVE (Negative); Ketones Urine UA NEGATIVE (NEGATIVE); Leukocyte Esterase Urine UA TRACE (NEGATIVE); Nitrite Urine UA NEGATIVE (Negative); Occult Blood Urine UA 3+ (Negative); Protein Urine UA TRACE (Negative); Specific Gravity Urine UA 1.025 (1.000-1.035); Urobilinogen Urine UA 0.2 E.U./dL (0.2)
[2020-11-07 12:03] LABS: Bacteria Urine Moderate (10-30); Culture Indicated Urine Specimen Cultured; RBC Urine 30-100/HPF (0-5/HPF); Squamous Epithelial Cell Urine 0-1 /HPF (0-5/HPF); WBC Urine 0-1/HPF (0-5/HPF)
== END ==
PROVIDERS: Registered Nurse; PCP Student in an Organized Health Care Education/Training Program; Referring Provider Student in an Organized Health Care Education/Training Program; Visit Provider Student in an Organized Health Care Education/Training Program
DX: E78.5 Hyperlipidemia, unspecified (principal); Z12.5 Encounter for screening for malignant neoplasm of prostate; E55.9 Vitamin D deficiency, unspecified; I10 Essential (primary) hypertension; Z79.899 Other long term (current) drug therapy; R31.9 Hematuria, unspecified
CPT/HCPCS: 36415; 80053; 81001; 82306; 87086; G0103

== ENCOUNTER → 2020-12-30 11:37 | Outpatient (CLI) | payer MEDICARE, OTHER, SELFPAY ==
[2020-12-30 11:42] LABS: Bacteria Urine None Seen
[2020-12-30 13:10] LABS: Appearance Urine UA SL CLOUDY; Bilirubin Urine UA NEGATIVE (NEGATIVE); Color Urine UA YELLOW; Glucose Urine UA NEGATIVE (Negative); Ketones Urine UA NEGATIVE (NEGATIVE); Leukocyte Esterase Urine UA NEGATIVE (NEGATIVE); Nitrite Urine UA NEGATIVE (Negative); Occult Blood Urine UA 3+ (Negative); Protein Urine UA NEGATIVE (Negative); Specific Gravity Urine UA 1.015 (1.000-1.035); Urobilinogen Urine UA 0.2 E.U./dL (0.2); pH Urine UA 6.5 (4.5-8.0)
[2020-12-30 13:26] LABS: Amorphous Sediment Urine 1+; Culture Indicated Urine Cult Not Indicated; RBC Urine 30-100/HPF (0-5/HPF); Squamous Epithelial Cell Urine 0-1 /HPF (0-5/HPF); WBC Urine 0-1/HPF (0-5/HPF)
== END ==
PROVIDERS: PCP Student in an Organized Health Care Education/Training Program; Referring Provider Student in an Organized Health Care Education/Training Program; Visit Provider Student in an Organized Health Care Education/Training Program
DX: M54.5 Low back pain (principal); R31.9 Hematuria, unspecified
CPT/HCPCS: 81001

== ENCOUNTER → 2021-02-03 11:38 | Outpatient (CLI) | payer MEDICARE, OTHER, SELFPAY ==
--- NOTE | 2021-02-03 11:39 | DI.RAD.S_ITS ---
PROCEDURE: XR KNEE LT 3V INDICATIONS: Bilateral knee pain TECHNIQUE: 3 views of the knee were acquired. COMPARISON: None. FINDINGS: Bones: No fracture . Scattered degenerative subchondral sclerosis and spurring. Mild narrowing of the patellofemoral joint space. Soft tissues: No joint effusion. No suspicious soft tissue calcifications. Scattered vascular calcifications. IMPRESSION: Mild degenerative changes as above. If the patient's pain or other symptoms persist, consider further evaluation with MRI Dictated by: Young Epperson M.D. on 02/03/2021 at 13:47 Approved by: Young Epperson M.D. on 02/03/2021 at 13:49
--- NOTE | 2021-02-03 11:39 | DI.RAD.S_ITS ---
PROCEDURE: XR KNEE RT 3V INDICATIONS: Bilateral knee pain TECHNIQUE: Three views of the knee were acquired. COMPARISON: None. FINDINGS: Bones: No fractures or dislocations. No suspicious bony lesions. Minor patellofemoral compartment spurs. Soft tissues: Small joint effusion. No suspicious soft tissue calcifications. Scattered atherosclerotic calcification. IMPRESSION: Minor patellofemoral compartment degeneration and small joint effusion. Dictated by: Mayra Rodríguez M.D. on 02/03/2021 at 14:52 Approved by: Mayra Rodríguez M.D. on 02/03/2021 at 14:53
== END ==
PROVIDERS: PCP Student in an Organized Health Care Education/Training Program; Referring Provider Student in an Organized Health Care Education/Training Program; Visit Provider Student in an Organized Health Care Education/Training Program
DX: M25.561 Pain in right knee (principal); M25.562 Pain in left knee; M25.461 Effusion, right knee
CPT/HCPCS: 73562

== ENCOUNTER → 2021-02-03 12:23 | Outpatient (CLI) | payer MEDICARE, OTHER, SELFPAY ==
[2021-02-03 12:56] LABS: BUN Creatinine Ratio 16.5 (6-22); Blood Urea Nitrogen 18 mg/dL (9-20); Estimated Glomerular Filt Rate > 60.0 mL/min (>60)
--- NOTE | 2021-02-03 13:20 | DI.CT.S_ITS ---
PROCEDURE: CT ABDOMEN PELVIS WO/W CON INDICATIONS: GROSS HEMATURIA TECHNIQUE: After the administration of oral contrast, 5 mm thick sections acquired from the diaphragms to the iliac crests. After the administration of intravenous contrast, 5 mm thick sections acquired from the diaphragms to the symphysis. 5 mm thick coronal and sagittal reformats were acquired. For radiation dose reduction, the following was used: automated exposure control, adjustment of mA and/or kV according to patient size. COMPARISON: None. FINDINGS: Image quality: Excellent. Lung bases: Lung bases are clear. Heart size is normal. The coronary arteries have atherosclerotic calcifications. Solid organs: Liver: The liver has no mass or intrahepatic biliary ductal dilatation. The portal vein and hepatic veins are patent. Biliary: The gallbladder has no gallstones, pericholecystic fluid, gallbladder wall thickening, or surrounding inflammatory change. Pancreas: The pancreas has no mass or ductal dilatation. There is no surrounding inflammation. Spleen: Normal size. There are no masses. Adrenals: No hypertrophy or nodules. Kidneys: No obstructive calculus or hydronephrosis. No solid mass. No cystic mass. The left kidney has a punctate nonobstructive calculus in the superior pole. Peritoneum and bowel: The distal esophagus and stomach are normal. The small bowel has a normal caliber and appearance. The terminal ileum is normal. The large bowel has diverticulosis with no evidence of diverticulitis. The appendix is normal. No free fluid or air. Nodes and vessels: No retroperitoneal or mesenteric adenopathy by size criteria. The aorta has atherosclerosis with no aneurysmal dilatation. Miscellaneous: No abdominal wall mass or hernia. PELVIS: Genitourinary: The bladder has no wall thickening or mass. No bladder calcifications. The prostate is enlarged measuring 5 centimeters in diameter. Miscellaneous: No inguinal hernias or adenopathy. Bones: No suspicious bony lesions. No vertebral body compression fractures. IMPRESSION: IMPRESSION: 1. No acute abdominal or pelvic abnormality. 2. Punctate nonobstructive calculus in the superior pole of the left kidney. 3. Coronary artery calcifications. 4. Mild prostatomegaly. Dictated by: Shivam Gonzales M.D. on 02/04/2021 at 15:32 Approved by: hSivam Gonzales M.D. on 02/04/2021 at 15:39
== END ==
PROVIDERS: PCP Student in an Organized Health Care Education/Training Program; Referring Provider Urology; Visit Provider Urology
DX: R31.0 Gross hematuria (principal); Z87.448 Personal history of other diseases of urinary system; N20.0 Calculus of kidney; I25.10 Atherosclerotic heart disease of native coronary artery without angina pectoris; N40.0 Benign prostatic hyperplasia without lower urinary tract symptoms; M25.561 Pain in right knee; M25.562 Pain in left knee; M25.461 Effusion, right knee
CPT/HCPCS: 36415; 73562; 74178; 82565; 84520; Q9967

== ENCOUNTER 2021-11-26 14:08 | Outpatient (CLI) | payer OTHER, SELFPAY | END 2021-12-01 13:15 | disposition home or self-care (01) | PROVIDERS: PCP Student in an Organized Health Care Education/Training Program | DX: M54.10 Radiculopathy, site unspecified (principal) | CPT/HCPCS: 95886; 95909 ==

== ENCOUNTER → 2022-03-05 10:01 | Outpatient (CLI) | payer MEDICARE, OTHER, SELFPAY ==
[2022-03-05 10:58] LABS: BUN Creatinine Ratio 18.9 (6-22); Blood Urea Nitrogen 20 mg/dL (9-20); C-Reactive Protein Quant < 0.5 mg/dL (<1.0); Carbon Dioxide 26 mmol/L (22-32); Chloride 102 mmol/L (98-107); Cholesterol 178 mg/dL (140-199); Estimated Glomerular Filt Rate > 60 mL/min (>60); Glucose 106 mg/dL (80-110); HDL Cholesterol 53 mg/dL (40-60); HEMOLYSIS < 15 (0-50); LDL Cholesterol Calculated 103 mg/dL (<100); Potassium 4.1 mmol/L (3.4-5.1); Sodium 137 mmol/L (137-145); Triglycerides 112 mg/dL (35-150)
[2022-03-05 11:03] LABS: Rheumatoid Factor < 8.6 IU/mL (<12.0)
[2022-03-05 11:13] LABS: Erythrocyte Sedimentation Rate 2 MM/HR (0-15)
[2022-03-05 11:28] LABS: Prostate Specific Antigen Scrn 0.756 ng/mL (0.1-4.0)
[2022-03-05 11:45] LABS: Hep C Virus Ab w/Reflex Quant NEGATIVE s/c (NEGATIVE)
[2022-03-09 09:48] LABS: Testosterone % Fr + Wkly bound 12.7 % (9.0-46.0); Testosterone Fr+Wkly bound 42.5 ng/dL (40.0-250.0); Testosterone, Total 334.7 ng/dL (264.0-916.0)
[2022-03-10 17:56] LABS: ANA Screen, IFA Positive (.)
== END ==
PROVIDERS: PCP Student in an Organized Health Care Education/Training Program; Referring Provider Student in an Organized Health Care Education/Training Program; Visit Provider Student in an Organized Health Care Education/Training Program
DX: E78.5 Hyperlipidemia, unspecified (principal); Z12.5 Encounter for screening for malignant neoplasm of prostate; E29.1 Testicular hypofunction; I10 Essential (primary) hypertension; M13.0 Polyarthritis, unspecified; Z11.59 Encounter for screening for other viral diseases
CPT/HCPCS: 36415; 80048; 80061; 84403; 85651; 86038; 86140; 86430; 86803; G0103

== ENCOUNTER → 2022-03-26 11:14 | Outpatient (CLI) | payer MEDICARE, OTHER, SELFPAY ==
[2022-03-26 12:22] LABS: Vitamin D 25 Hydroxy (D3) 49.2 ng/mL (30.0-100.0)
[2022-03-27 19:59] LABS: DNA (DS) Antibody 2 IU/mL (0-9); RNP Antibodies <0.2 AI (0.0-0.9)
[2022-03-28 07:37] LABS: Parathyroid Hormone, Intact 100 pg/mL (15-65)
== END ==
PROVIDERS: PCP Student in an Organized Health Care Education/Training Program; Referring Provider Student in an Organized Health Care Education/Training Program; Visit Provider Student in an Organized Health Care Education/Training Program
DX: E83.52 Hypercalcemia (principal); M13.0 Polyarthritis, unspecified; R76.8 Other specified abnormal immunological findings in serum
CPT/HCPCS: 36415; 82306; 82310; 83970; 86225; 86235

== ENCOUNTER → 2022-03-31 11:32 | Outpatient (CLI) | payer MEDICARE, OTHER, SELFPAY ==
--- NOTE | 2022-03-31 11:33 | DI.RAD.S_ITS ---
PROCEDURE: XR DEXA AXIAL SKELETON INDICATIONS: Evaluate bone density in prim hyperparathyroidism COMPARISON: None. FINDINGS: This blank DEXA report has been sent in error by the PACS system. The correct and complete report will be forthcoming in 1-2 days. Thank you for your patience and understanding. Dictated by: Hesham Bravo M.D. on 03/31/2022 at 12:26 Approved by: Hesham Bravo M.D. on 03/31/2022 at 12:26
== END ==
PROVIDERS: PCP Student in an Organized Health Care Education/Training Program; Referring Provider Student in an Organized Health Care Education/Training Program; Visit Provider Student in an Organized Health Care Education/Training Program
DX: E21.0 Primary hyperparathyroidism (principal)
CPT/HCPCS: 77080

== ENCOUNTER → 2022-04-06 10:52 | Outpatient (CLI) | payer OTHER, SELFPAY ==
--- NOTE | 2022-04-06 | DI.MRI.S_ITS ---
PROCEDURE: MR LUMBAR SPINE WO CON INDICATIONS: Spondylosis with radiculopathy, lumbosacral region TECHNIQUE: Noncontrast sagittal T1 spin echo and T2 fast echo, sagittal STIR, and T2 fast spin echo through the lumbar spine. In cases with scoliosis, additional coronal T2 fast spin echo may be performed. COMPARISON: [facility], MR, MR LUMBAR SPINE WO CON, 11/14/2019, 13:46. [facility] [place], CR, XR LUMBAR SPINE 2 OR 3 VIEWS, 03/31/2021, 9:48. [facility], MR, MR LUMBAR SPINE WO CON, 10/16/2020, 15:25. FINDINGS: Image quality: Excellent. Alignment and Curvature: There is normal bony alignment. Bones: Left justina sacralization of the L5 vertebral body. Intraosseous hemangioma noted in the L2 vertebral body. Mild loss of height noted in the L2 vertebral body which could represent physiologic wedging or mild chronic compression deformity. No acute vertebral body compression fractures. Spinal Cord: Conus medullaris terminates at the L1 level. Visualized cord demonstrates normal signal and size. Paraspinous Soft Tissues: No paravertebral masses. T12-L1: Loss of disc signal. Mild, diffuse disc bulge. No central stenosis. No neural foraminal narrowing. No neural compression. L1-L2: Loss of disc signal. Mild to moderate diffuse disc bulge. Mild bilateral facet hypertrophy. Mild narrowing of the central canal. Mild to moderate bilateral neural foraminal narrowing. No neural compression. L2-L3: Loss of disc signal. Mild to moderate diffuse disc bulge. Rzcc-vj-[id number] bilateral facet hypertrophy. Moderate narrowing of the central canal. Tyos-ul-sdpllpoi right and moderate left neural foraminal narrowing. No neural compression. L3-L4: Loss of disc signal. Mild to moderate diffuse disc bulge. Mild bilateral facet hypertrophy. Moderate narrowing of the central canal. Moderate bilateral neural foraminal narrowing. No neural compression. L4-L5: Loss of disc signal. Mild, diffuse disc bulge. Moderate right mild left facet hypertrophy. Mild narrowing of the central canal. Moderate right and mild left neural foraminal narrowing. No neural compression. L5-S1: Disc has a normal appearance. Mild bilateral facet hypertrophy. No central stenosis. No neural foraminal narrowing. No neural compression. IMPRESSION: Multilevel degenerative disc disease. Multilevel facet arthropathy. No severe central canal narrowing. No severe neural foraminal narrowing. No neural compression. Dictated by: Dione Tobin MD, PhD on 04/06/2022 at 15:54 Approved by: Dione Tobin MD, PhD on 04/06/2022 at 15:58
[2022-04-06 15:50] LABS: Calcium 24 Hour Urine 296 mg/day (100-300); Calcium Urine Random 32.9 mg/dL; Collection Time Urine 24 Hours; Total Volume Urine 900 mL
== END ==
PROVIDERS: PCP Student in an Organized Health Care Education/Training Program; Referring Provider Preventive Medicine Occupational Medicine; Visit Provider Preventive Medicine Occupational Medicine
DX: M47.27 Other spondylosis with radiculopathy, lumbosacral region (principal); M47.26 Other spondylosis with radiculopathy, lumbar region; M51.16 Intervertebral disc disorders with radiculopathy, lumbar region; E21.0 Primary hyperparathyroidism
CPT/HCPCS: 72148; 82340

== ENCOUNTER → 2022-04-19 12:59 | Outpatient (CLI) | payer OTHER, SELFPAY ==
[2022-04-19 14:19] LABS: Add Manual Diff / Slide Review NO; Basophils Absolute Auto 0 /uL (0-100); Basophils Percent Auto 0.5 % (0-2); Eosinophils Absolute Auto 100 /uL (0-450); Eosinophils Percent Auto 1.1 % (2-4); Hematocrit 43.2 % (41-53); Hemoglobin 14.5 g/dL (13.5-17.5); Lymphocytes Absolute Auto 800 /uL (1100-4500); Mean Corpuscular HGB Conc 33.6 % (30-36); Mean Corpuscular Hemoglobin 31.3 PG (26-34); Mean Corpuscular Volume 93.2 fL (80-100); Monocytes Absolute Auto 400 /uL (0-900); Monocytes Percent Auto 7.2 % (3-14); Neutrophils Absolute Auto 3700 /uL (1500-7000); Neutrophils Percent Auto 75.2 % (50-75); Platelet Count 187 X10^3/uL (150-400); Red Blood Cell Count 4.64 X10^6/uL (4.5-5.9); Red Cell Distribution Width 13.4 % (11.6-14.8)
[2022-04-19 14:31] LABS: BUN Creatinine Ratio 14.3 (6-22); Blood Urea Nitrogen 15 mg/dL (9-20); Calcium 10.9 mg/dL (8.4-10.2); Carbon Dioxide 28 mmol/L (22-32); Chloride 104 mmol/L (98-107); Estimated Glomerular Filt Rate > 60 mL/min (>60); Glucose 131 mg/dL (80-110); HEMOLYSIS < 15 (0-50); Potassium 4.3 mmol/L (3.4-5.1); Sodium 139 mmol/L (137-145)
== END ==
PROVIDERS: PCP Student in an Organized Health Care Education/Training Program; Referring Provider Orthopaedic Surgery Orthopaedic Surgery of the Spine; Visit Provider Orthopaedic Surgery Orthopaedic Surgery of the Spine
DX: Z01.818 Encounter for other preprocedural examination (principal); Z01.812 Encounter for preprocedural laboratory examination
CPT/HCPCS: 36415; 80048; 85025; 93005

== ENCOUNTER → 2022-05-10 10:27 | Outpatient (CLI) | payer OTHER, SELFPAY ==
[2022-05-10 11:41] LABS: COVID19 -Nasal RAPID Negative (Negative)
== END ==
PROVIDERS: PCP Student in an Organized Health Care Education/Training Program; Referring Provider Orthopaedic Surgery Orthopaedic Surgery of the Spine; Visit Provider Orthopaedic Surgery Orthopaedic Surgery of the Spine
DX: Z20.822 Contact with and (suspected) exposure to COVID-19 (principal)
CPT/HCPCS: 87635; C9803

== ENCOUNTER 2022-05-12 08:54 | Day surgery (SDC) | payer OTHER, SELFPAY ==
[2022-04-27 14:54] VITALS: BMI 32.5
[2022-05-12] VITALS (9 sets, daily range): BP systolic 112–160; BP diastolic 61–87; PULSE 54–59; RESP 13–17; TEMP 36.1–36.4; O2SAT 92–100; BMI 32.5
[2022-05-12] MEDS: LACTATED RINGERS 1,000 ML 42 ML IV (09:34)
--- NOTE | 2022-05-12 10:46 | PM.PREOP ---
Pre-operative Note COVID-19 COVID-19 status: Negative Result date/Date tested (Pos, Neg/Pending): 05/11/22 Criteria for continued procedure: Expected advancement of disease process, Possibility delay results in more complex future surgery or treatment, Increased loss of function, Continuing or worsening of significant or severe pain, Deterioration of the patient's condition or overall health and Delay expected to result in less-positive ultimate med/surg outcome Interval Note History & Physical reviewed/Exam performed by Physician: Yes Changes to H&P: No
[2022-05-12] MEDS: CEFAZOLIN 2 GM/100 ML PREMIX 100 ML IV (11:12)
--- NOTE | 2022-05-12 11:42 | SUR.OPER ---
Prone on spine table, head in foam head support, padded chest and pelvic supports, gel pad at knees, lower legs supported by pillows; nipples, genitalia and toes free of pressure, arms secured on foam padded arm boards at <90 degrees abduction. Tape over blanket at thigh secured to table.
[2022-05-12] MEDS: BUPIVACAINE 0.5% W/ EPI (PF) 30 ML VIAL INJ (12:21)
--- NOTE | 2022-05-12 12:28 | P.OP_ITS ---
Operative Date/Time/Diagnoses Date of procedure: 05/12/22 Time of procedure: 11:00 Pre-op diagnosis: 1. L2-3 far lateral disc herniation 2. L4-5 disc herniation Post-op diagnosis: same Procedure & Clinicians Procedure: 1. L2-3 left far lateral microdiscectomy through extraforamen approach 2. L4-5 right microdiscectomy 3. Utilization of microsurgical technique and operating microscope Same procedure as scheduled: Yes Indications: Patient has been having chronic back pain and worsening lumbar radiculopathy. Patient failed multiple conservative management with worsening pain weakness and numbness in his lower extremities bilaterally due to L2-3 and L4-5 disc herniation. Patient has been having difficulty performing activity of daily living. After discussing risks benefits of treatment options, patient elected proceed with surgery. Surgeon: Dora Berrios [employer] Equipment Mechanic: Cathleen Crane Click Yes if Unassisted: No Anesthesia Type: General Operative Notes Closure Type: primary Specimen(s): none sent Estimated Blood Loss (mL): 5 Blood products transfused: none Procedure in detail: Patient was seen in the preoperative area. Risks and benefits of the surgery was discussed with the patient. Informed consent was obtained from the patient and placed in the chart. Surgical site was marked. Patient was taken to the operative room. General anesthesia was administered. Prophylactic antibiotic was given to the patient less than 30 min before the incision was made. Patient was placed into a prone position on the [place] table. Patient's back was then prepped and draped in the sterile fashion. Time-out was performed at this time. Using AP and lateral C-arm imaging the interval between L2-3 was identified and marked on patient's back. A 1 inch incision 1 in from midline was made on the left side in line with the transverse processes. The fascia was incised in line with skin incision. Globus MARS retractors was placed inside the incision and docked onto the transverse process at the L2-3 level. The retractor was then re- targeted towards L2-3 neuroforamen from extraforamen approach under c-arm guidance. Using microsurgical technique and operating microscope, a the disc space at L2-3 was identified. Patient's L2 nerve root was identified and protected during entire procedure. Microdiscectomy was performed by incising the annulus with #11 blade. Microcurettes and pituitary was used to removed herniated disc fragments of disc from the neuroforamen. After the microdiskectomy was completed, the area medial lateral superior and inferior to the area of the microdiskectomy was inspected and explored using a micro curette. No other impinging structure was identified. Using AP and lateral C-arm imaging the interval between L4-5 was identified and marked on patient's back. A 1 inch incision 1 in from midline was made on the right side. The fascia was incised in line with skin incision. Globus MARS retractors was placed inside the incision and docked onto the L4 lamina. Using microsurgical technique and operating microscope, a L4 laminotomy was performed using a Kerrison rongeur. Liagamentum flavum was resected at the site of the laminotomy. The disc space at L4-5 was identified. Microdiscectomy was performed by incising the annulus with #11 blade. Microcurettes and pituitary was used to removed herniated disc fragments of disc from the epidural space. After the microdiskectomy was completed, the area medial lateral superior and inferior to the area of the microdiskectomy was inspected and explored using a micro curette. No other impinging structure was identified. The wound was then irrigated with sterile normal saline. 40 mg Depo-Medrol was placed into the epidural space. The deep fascia was closed with 1-0 Vicryl. The subcutaneous tissue was closed with 2-0 Vicryl. The skin was closed with skin tri. Patient tolerated the procedure well. There were no complications. Patient was transferred recovery room in stable condition. Complications: none Post-operative Condition: stable Disposition: PACU Plan for aftercare: Discharge to home
--- NOTE | 2022-05-12 12:52 | DI.RAD.S_ITS ---
PROCEDURE: XR LUMBAR SPINE MIN 4V INDICATIONS: L2-3 DECOMPRESSION, L4-5 HEMILAMINECTOMY TECHNIQUE: Intraoperative spot views obtained of the lumbar spine. COMPARISON: None. FINDINGS: Multiple intraoperative spot views of the lumbar spine are obtained. IMPRESSION: Intraoperative imaging of lumbar spine. Dictated by: Herrera Saeed M.D. on 05/12/2022 at 13:02 Approved by: Herrera Saeed M.D. on 05/12/2022 at 13:02
--- NOTE | 2022-05-12 14:11 | SUR.PHASEII ---
Pt able to log roll and sit up on side of bed. Stood at edge of bed and took several steps. Steady on his feet.
== END 2022-05-12 13:59 | disposition home or self-care (01) ==
PROVIDERS: PCP Student in an Organized Health Care Education/Training Program; Referring Provider Orthopaedic Surgery Orthopaedic Surgery of the Spine; Visit Provider Orthopaedic Surgery Orthopaedic Surgery of the Spine
PROC: (CPT 63056; principal; 2022-05-12 10:15)
DX: M51.16 Intervertebral disc disorders with radiculopathy, lumbar region (principal); M48.061 Spinal stenosis, lumbar region without neurogenic claudication
CPT/HCPCS: 63056; 63030; 72110; 76000; 82962; J0330; J0690; J1100; J1170; J2405; J2704; J2920; J3010

== ENCOUNTER 2022-10-12 13:10 | Day surgery (SDC) | payer MEDICARE, OTHER, SELFPAY ==
--- NOTE | 2022-10-12 | PATH_ITS ---
[facility] Accession Number: [id number] No. of containers..01 Tissue . 01 Material submitted: . ileo-cecal valve - ILEOCECAL BIOPSY . 01 Diagnosis: Ileocecal Biopsy: Colonic mucosa with no diagnostic abnormality. Negative for active, chronic, and microscopic colitis. Negative for dysplasia and malignancy. . MRV 10/20/2022 1616 Local . 01 Electronically signed: . Dafne Martins MD, Pathologist NPI- [id number] . 01 Gross description: . ILEOCECAL BIOPSY: Received in formalin is 1 fragment(s) of felix, soft tissue measuring 0.2 x 0.2 x 0.1 cm submitted entirely in 1 cassette(s) /MOMO 10/15/2022 0035 Local . 01 Pathologist provided ICD-10: Z86.010 . 01 CPT . 825520 Specimen Comment: A courtesy copy of this report has been sent to [phone] Performed at: 01 [facility] [address] [place] [address], [place], [place] [id number] MD Juancho Butt MD Phone: [phone]
[2022-10-12] MEDS: LACTATED RINGERS 1,000 ML 200 ML IV (13:41)
[2022-10-12 13:44] VITALS: BP 123/68; PULSE 59; RESP 16; TEMP 35.8; O2SAT 97; BMI 33.2
--- NOTE | 2022-10-12 14:46 | PM.HP.1 ---
History of Present Illness History of Present Illness Date Patient Seen: 10/12/22 Time Patient Seen: 14:46 Chief complaint: Colonoscopy Narrative: 67-year-old man personal history of colonic polyps here for screening colonoscopy. No family history of colon cancer. No nausea, vomiting, abdominal pain, loss of appetite, unexplained weight loss, change in bowel habits, or blood per rectum. [facility] Medical History (Updated 06/20/22 @ 10:26 by Main Kurtz MD) Anal fissure Electrocution (2018) Hematuria Positive SANDRA (antinuclear antibody) Surgical History (Updated 02/09/22 @ 11:11 by Main Kurtz MD) History of arthroplasty of left shoulder (~2017) History of arthroplasty of right shoulder History of vasectomy Family History Brother Cancer Mother Hypertension Stroke Social History household members: spouse Smoking Status: Former smoker alcohol intake: current Meds Home Medications and Allergies Home Medications Medication Instructions Recorded Confirmed Type atorvastatin 40 mg tablet 40 mg PO HS #90 tabs 05/03/22 10/12/22 Rx losartan 100 mg tablet 100 mg PO DAILY #90 tabs 07/21/22 10/12/22 Rx Allergies Allergy/AdvReac Type Severity Reaction Status Date / Time lisinopril AdvReac Mild ITCHING Verified 10/12/22 13:42 Exam Vital Signs (past 8 hours): - 10/12/22 13:44 Temperature 96.5 F L Pulse Rate 59 L Respiratory Rate 16 Blood Pressure 123/68 Pulse Oximetry 97 Oxygen Delivery Method Room Air Oxygen Delivery Method Room Air Narrative Exam Narrative: General adult man alert oriented no acute distress Assessment & Plan Assessment & Plan narrative: The patient requires colorectal screening and colonoscopy is recommended. Technical details were discussed. Risks, benefits, alternatives explained. Risks including but not limited to myocardial infarction, aspiration, bleeding, pain, missed lesion, incomplete examination, need for further radiographic studies, colonic perforation, and need for major abdominal surgery were discussed. All questions were answered to their satisfaction, and they are in agreement with this plan.
--- NOTE | 2022-10-12 15:08 | PM.OP.COLON ---
Operative Date/Time/Diagnoses Date of procedure: 10/12/22 Time of procedure: 15:08 Pre-op diagnosis: Personal history of colonic polyps Post-op diagnosis: other (Colonic polyp x1) Procedure & Clinicians Study performed: Colonoscopy and polypectomy Same procedure as scheduled: Yes Indications: 67-year-old man personal history of colonic polyps here for screening colonoscopy Surgeon: Reji Salas Procedure Notes Procedure in detail: The history and physical was performed/updated and the patient is ASA class is 2. The procedure was discussed in detail with the patient. Potential risks complications including infection, bleeding, missed diagnosis, perforation, need for surgery, and were explained. Their questions were answered and informed consent was obtained. Patient was brought to the procedure room and placed standard monitoring equipment. The patient's vital signs were monitored continuously throughout the entire procedure. Prior to starting time-out was performed. The patient was placed in the left lateral recumbent position. Procedural sedation was administered by anesthesia. Examination began with a thorough inspection of the perianal area there was no evidence of fissures, fistulae, external hemorrhoids or cutaneous malignancy. The colonoscopy scope was then placed into the anal canal and was advanced to the cecum, which was identified by the ileocecal valve, the appendiceal orifice and the confluence of the taenia. The scope was then slowly withdrawn examining colon thoroughly in all directions, irrigating it of any residual stool. On the ileocecal valve there was a 3 mm polyp removed with biopsy forceps. No other polyps were identified. Sigmoid colon was notable for diverticulosis. The patient tolerated the procedure well. They will be discharged once criteria are met. The prep was of good/excellent quality. The withdrawl time was 6 minutes. Specimen(s): other (Ileocecal valve polyp) Post-procedure Plan for aftercare: Follow-up is dependent on pathology findings Disposition: same day surgery
[2022-10-12 15:12] VITALS: BP 138/73; PULSE 55; RESP 15; TEMP 36.1; O2SAT 95
[2022-10-12 15:17] VITALS: BP 128/55; PULSE 55; RESP 20; O2SAT 94
[2022-10-12 15:22] VITALS: BP 145/89; PULSE 55; RESP 18; TEMP 36.3; O2SAT 93
[2022-10-12 15:29] VITALS: BP 141/89; PULSE 56; RESP 16; O2SAT 96
== END 2022-10-12 15:41 | disposition home or self-care (01) ==
PROVIDERS: PCP Student in an Organized Health Care Education/Training Program; Referring Provider Surgery; Visit Provider Surgery
PROC: 0DJD8ZZ Inspection of Lower Intestinal Tract, Via Natural or Artificial Opening Endoscopic (ICD-10-PCS; CPT 45378; principal; 2022-10-12 14:15)
DX: Z12.11 Encounter for screening for malignant neoplasm of colon (principal); Z86.010 Personal history of colon polyps; K57.30 Diverticulosis of large intestine without perforation or abscess without bleeding
CPT/HCPCS: 45380; J2704

== ENCOUNTER → 2022-11-04 11:11 | Outpatient (CLI) | payer OTHER, SELFPAY ==
--- NOTE | 2022-11-04 | DI.MRI.S_ITS ---
PROCEDURE: MR LUMBAR SPINE WO CON INDICATIONS: Spinal stenosis, lumbar region TECHNIQUE: Noncontrast sagittal T1 spin echo and T2 fast echo, sagittal STIR, and T2 fast spin echo through the lumbar spine. In cases with scoliosis, additional coronal T2 fast spin echo may be performed. COMPARISON: [facility], MR, MR LUMBAR SPINE WO CON, 04/06/2022, 11:03. FINDINGS: Image quality: Excellent. Alignment and Curvature: There is normal bony alignment. Bone Marrow: Marrow is of normal overall signal. No acute vertebral body compression fractures. Spinal Cord: Conus medullaris terminates at the L1-L2 level. Visualized cord demonstrates normal signal and size. Paraspinous Soft Tissues: No paravertebral masses. T12-L1: Unchanged. Mild disc bulge. No canal stenosis or foraminal stenosis. L1-L2: Unchanged. Disc bulge. Mild facet hypertrophy. Epidural lipomatosis. No significant canal stenosis. Mild bilateral foraminal stenosis. L2-L3: Unchanged. Disc bulge. Facet hypertrophy. Epidural lipomatosis. Moderate canal stenosis. Mild right foraminal stenosis and moderate left foraminal stenosis. There is flattening deformity on the exiting left L2 nerve root. L3-L4: Unchanged. Diffuse disc bulge. Facet and ligament hypertrophy. Epidural lipomatosis. Mild canal stenosis. Covj-os-cboaogea bilateral foraminal stenosis. L4-L5: Unchanged. Mild diffuse disc bulge. Disc material mildly posteriorly deviates the bilateral L5 nerve roots in the lateral recesses. Mild to moderate central canal stenosis. Moderate right foraminal narrowing and mild to moderate left foraminal narrowing. L5-S1: Facet hypertrophy. No canal stenosis or foraminal stenosis. IMPRESSION: 1. Findings are unchanged. 2. Multilevel underlying facet arthropathy. 3. At L4-L5, there is mild diffuse disc bulge. The bilateral L5 nerve roots are slightly posteriorly deviated in the lateral recesses bilaterally. 4. Canal stenosis is moderate at L2-L3, mild at L3-L4, and mild to moderate at L4-L5. 5. Multilevel foraminal narrowing as described above. Dictated by: Morris Powell M.D. on 11/04/2022 at 14:18 Approved by: Morris Powell M.D. on 11/04/2022 at 14:25
== END ==
PROVIDERS: PCP Pediatrics; Referring Provider Physical Medicine & Rehabilitation; Visit Provider Physical Medicine & Rehabilitation
DX: M48.061 Spinal stenosis, lumbar region without neurogenic claudication (principal); M47.816 Spondylosis without myelopathy or radiculopathy, lumbar region; M47.817 Spondylosis without myelopathy or radiculopathy, lumbosacral region; M51.36 Other intervertebral disc degeneration, lumbar region
CPT/HCPCS: 72148

== ENCOUNTER → 2023-04-05 15:25 | Outpatient (CLI) | payer MEDICARE, OTHER, SELFPAY ==
[2023-04-05 17:11] LABS: Hematocrit 42.6 % (41-53); Hemoglobin 14.6 g/dL (13.5-17.5); Mean Corpuscular HGB Conc 34.2 % (30-36); Mean Corpuscular Hemoglobin 31.1 PG (26-34); Mean Corpuscular Volume 90.8 fL (80-100); Platelet Count 176 X10^3/uL (150-400); Red Blood Cell Count 4.69 X10^6/uL (4.5-5.9); Red Cell Distribution Width 13.2 % (11.6-14.8); White Blood Cell Count 5.6 X10^3/uL (4.5-11.0)
[2023-04-05 17:26] LABS: Alanine Aminotransferase 38 IU/L (<50); Albumin Globulin Ratio 1.3 (1.0-2.8); Alkaline Phosphatase 50 U/L (38-126); Aspartate Aminotransferase 31 IU/L (17-59); Bilirubin Total 0.7 mg/dL (0.2-1.3); Blood Urea Nitrogen 22 mg/dL (9-20); Calcium 11.7 mg/dL (8.4-10.2); Carbon Dioxide 31 mmol/L (22-32); Chloride 102 mmol/L (98-107); Cholesterol 166 mg/dL (140-199); Estimated Glomerular Filt Rate > 60 mL/min (>60); Glucose 90 mg/dL (80-110); HDL Cholesterol 56 mg/dL (40-60); HEMOLYSIS < 15 (0-50); LDL Cholesterol Calculated 81 mg/dL (<100); Potassium 3.4 mmol/L (3.4-5.1); Sodium 140 mmol/L (137-145); Triglycerides 143 mg/dL (35-150)
[2023-04-05 17:55] LABS: Prostate Specific Antigen 1.24 ng/mL (0.10-4.00)
[2023-04-05 17:57] LABS: Testosterone 250 ng/dL (71.8-623)
[2023-04-05 18:03] LABS: TSH w/ Reflex to FT4 1.35 uIU/mL (0.47-4.68)
[2023-04-08 11:50] LABS: Calcium 11.5 mg/dL (8.6-10.2); Parathyroid Hormone, Intact 132 pg/mL (15-65)
== END ==
PROVIDERS: PCP Internal Medicine; Referring Provider Internal Medicine; Visit Provider Internal Medicine
DX: I10 Essential (primary) hypertension (principal); N40.1 Benign prostatic hyperplasia with lower urinary tract symptoms; E29.1 Testicular hypofunction; E78.2 Mixed hyperlipidemia; E21.0 Primary hyperparathyroidism; N13.8 Other obstructive and reflux uropathy
CPT/HCPCS: 36415; 80053; 80061; 82310; 83970; 84153; 84403; 84443; 85027

== ENCOUNTER → 2023-05-02 11:53 | Outpatient (CLI) | payer MEDICARE, OTHER, SELFPAY ==
--- NOTE | 2023-05-02 11:56 | DI.NM.S_ITS ---
PROCEDURE: NM PARATHYROID RADIOPHARMACEUTICAL: 26.6 mCi Tc-99m sestamibi IV. INDICATIONS: hyperparathyroidism TECHNIQUE: After intravenous administration of Tc-99m sestamibi, anterior planar images of the neck and mediastinum were obtained at approximately 10 minutes and 2-3 hours. SPECT images were acquired after the 10 minute planar images. COMPARISON: [facility], , US THYROID, 05/02/2023, 12:10. FINDINGS: On the early images, the thyroid gland is bilobed and has normal size and morphology. There is no focal increased activity in the thyroid bed. The delayed images show no preferential tracer retention in the thyroid bed to suggest parathyroid adenoma. On SPECT images, there is a small focal activity posterior inferior medial to the left thyroid bed, suspicious for a small parathyroid adenoma. IMPRESSION: Question a small parathyroid adenoma post inferior medial to the left thyroid bed, only seen on SPECT images. Recommend parathyroid protocol CT for confirmation. Dictated by: Lalita Conte M.D. on 05/02/2023 at 16:58 Approved by: Lalita Conte M.D. on 05/03/2023 at 9:07
--- NOTE | 2023-05-02 11:56 | DI.RAD.S_ITS ---
Bone Density Report Name: ANTIONE BLANC Age: 67 Sex: Male Ethnicity: White Date of : 1955 Indication: Referring Provider: CHRISTY ROSS Study: Bone densitometry was performed. Exam Date: May 02, 2023 Accession number: [id number] Bone Density: Region BMD T-score Z-score Classification AP Spine(L1-L4) 1.195 1.3 1.8 Normal Femoral Neck (Left) 0.759 -0.8 -0.1 Normal Total Hip (Left) 1.088 1.2 1.0 Normal Femoral Neck (Right) 0.835 -0.1 0.4 Normal Total Hip (Right) 1.066 1.0 0.8 Normal Total Hip Mean 1.077 1.1 0.9 Normal World Health Organization criteria for BMD impression classify patients as: Normal (T-score at or above -1.0), Osteopenia (T-score between -1.0 and -2.5), or Osteoporosis (T-score at or below -2.5). 10-year Fracture Risk: FRAX not reported because: All T-scores for Spine Total, Hip Total, Femoral Neck at or above -1.0 Previous Exams: -- Region Exam Age BMD T-score BMD Change BMD Change Date g/cm2 vs Baseline vs Previous -- AP Spine (L1-L4) 05/02/2023 67 1.195 1.3 0.045 (4.0%)* 0.045 (4.0%)* 03/31/2022 66 1.149 0.9 Total Hip(Left) 05/02/2023 67 1.088 1.2 0.014 (1.3%) 0.014 (1.3%) 03/31/2022 66 1.074 1.1 Total Hip(Right) 05/02/2023 67 1.066 1.0 0.025 (2.4%) 0.025 (2.4%) 03/31/2022 66 1.041 0.8 -- *Denotes significance at 95% confidence level, LSC for AP Spine = 0.022 g/cm2, LSC for Total Hip = 0.027 g/cm2 Impression: The patient has normal bone mass. No significant bone loss was observed. Discussion: BONE DENSITY IS ABOVE THE MINIMUM DESIRABLE LEVEL AT ALL SKELETAL SITES TESTED. This patient's bone mineral density is above the minimum desirable level (T-score -1.0 or better) at all sites measured. The patient should follow a healthful lifestyle (good nutrition with adequate calcium and vitamin D, and appropriate weight-bearing exercise). Follow-Up: Consider repeating this study in 5 years or sooner if there is some new clinical indication. Reported by: [facility] RAF HOFFMANN M.D. on 05/02/2023 1:09:00 PM.
--- NOTE | 2023-05-02 11:56 | DI.US.S_ITS ---
PROCEDURE: US THYROID INDICATIONS: hyperparathyroidism TECHNIQUE: Real-time scanning was performed of the thyroid gland, with image documentation. COMPARISON: None. FINDINGS: Right: Thyroid lobe measures 4.2 x 2.0 x 1.1 cm, and is homogeneous in echotexture. Left: Thyroid lobe measures 4.2 x 2.3 x 1.0 cm, and is homogenous in echotexture. Isthmus: 4 mm thick. Nodule number: 1 Location: Left inferior Size: 1.5 x 0.9 x 1.2 cm. Composition: Solid Echogenicity: Isoechoic Shape: wider than tall. Margins: Irregular Echogenic foci: None Total points: 3 ACR TI-RADS category: 3 IMPRESSION: 1.5 cm left T3 lesion. Follow-up at 1, 3, and 5 years recommended. ACR TI-RADS definitions and recommendations: TI-RADS 1 (benign): 0 points. FNA not needed. TI-RADS 2 (not suspicious): 2 points. FNA not needed. TI-RADS 3 (mildly suspicious): 3 points. * FNA if 2.5 cm or larger, follow up if 1.5 cm or larger (at 1, 3, and 5 years). TI-RADS 4 (moderately suspicious): 4-6 points. * FNA if 1.5 cm or larger, follow up if 1 cm or larger (at 1, 2, 3, and 5 years). TI-RADS 5 (highly suspicious): 7 points or more. * FNA if 1 cm or larger, follow up if 0.5 cm or larger (every year for 5 years). Dictated by: Blossom Christopher M.D. on 05/02/2023 at 16:07 Approved by: Blossom Christopher M.D. on 05/02/2023 at 16:09
== END ==
PROVIDERS: PCP Internal Medicine; Referring Provider Internal Medicine; Visit Provider Internal Medicine
DX: E21.0 Primary hyperparathyroidism (principal); E04.1 Nontoxic single thyroid nodule
CPT/HCPCS: 76536; 77080; 78070; A9500

== ENCOUNTER → 2023-06-11 12:12 | Outpatient (CLI) | payer MEDICARE, OTHER, SELFPAY ==
[2023-06-11 12:30] LABS: Add Manual Diff / Slide Review NO; Basophils Absolute Auto 100 /uL (0-100); Basophils Percent Auto 0.8 % (0-2); Eosinophils Absolute Auto 100 /uL (0-450); Eosinophils Percent Auto 0.9 % (2-4); Hematocrit 45.4 % (41-53); Hemoglobin 15.8 g/dL (13.5-17.5); Lymphocytes Absolute Auto 1000 /uL (1100-4500); Lymphocytes Percent Auto 14.8 % (25-40); Mean Corpuscular HGB Conc 34.8 % (30-36); Mean Corpuscular Hemoglobin 31.4 PG (26-34); Mean Corpuscular Volume 90.2 fL (80-100); Monocytes Absolute Auto 700 /uL (0-900); Monocytes Percent Auto 10.2 % (3-14); Neutrophils Absolute Auto 4800 /uL (1500-7000); Neutrophils Percent Auto 73.3 % (50-75); Platelet Count 182 X10^3/uL (150-400); Red Blood Cell Count 5.03 X10^6/uL (4.5-5.9); Red Cell Distribution Width 13.4 % (11.6-14.8); White Blood Cell Count 6.5 X10^3/uL (4.5-11.0)
[2023-06-11 12:57] LABS: Blood Urea Nitrogen 20 mg/dL (9-20); Calcium 12.7 mg/dL (8.4-10.2); Carbon Dioxide 29 mmol/L (22-32); Chloride 103 mmol/L (98-107); Estimated Glomerular Filt Rate > 60 mL/min (>60); Glucose 109 mg/dL (80-110); HEMOLYSIS < 15 (0-50); Potassium 3.7 mmol/L (3.4-5.1); Sodium 138 mmol/L (137-145)
== END ==
LOC: LAB 12:14
PROVIDERS: PCP Internal Medicine; Referring Provider Specialist/Technologist, Other Surgical Technologist; Visit Provider Specialist/Technologist, Other Surgical Technologist
DX: E21.0 Primary hyperparathyroidism (principal)
CPT/HCPCS: 36415; 80048; 85025; 93005; 93010

== ENCOUNTER → 2023-11-15 10:45 | Outpatient (CLI) | payer MEDICARE, OTHER, SELFPAY ==
[2023-11-15 12:43] LABS: BUN Creatinine Ratio 20.8 (6-22); Blood Urea Nitrogen 22 mg/dL (9-20); Calcium 9.2 mg/dL (8.4-10.2); Carbon Dioxide 28 mmol/L (22-32); Chloride 105 mmol/L (98-107); Estimated Glomerular Filt Rate > 60 mL/min (>60); Glucose 102 mg/dL (80-110); HEMOLYSIS < 15 (0-50); Potassium 3.9 mmol/L (3.4-5.1); Sodium 140 mmol/L (137-145)
[2023-11-17 16:09] LABS: Calcium 9.5 mg/dL (8.6-10.2); Parathyroid Hormone, Intact 26 pg/mL (15-65)
== END ==
PROVIDERS: PCP Internal Medicine; Referring Provider Internal Medicine; Visit Provider Internal Medicine
DX: E21.0 Primary hyperparathyroidism (principal)
CPT/HCPCS: 36415; 80048; 82310; 83970

== ENCOUNTER → 2024-04-11 11:46 | Outpatient (CLI) | payer MEDICARE, OTHER, SELFPAY ==
[2024-04-11 13:15] LABS: Aspartate Aminotransferase 30 IU/L (17-59); BUN Creatinine Ratio 17.7 (6-22); Blood Urea Nitrogen 22 mg/dL (9-20); Calcium 9.8 mg/dL (8.4-10.2); Carbon Dioxide 26 mmol/L (22-32); Chloride 106 mmol/L (98-107); Cholesterol 229 mg/dL (140-199); Estimated Glomerular Filt Rate > 60 mL/min (>60); Glucose 97 mg/dL (80-110); HDL Cholesterol 47 mg/dL (40-60); HEMOLYSIS < 15 (0-50); LDL Cholesterol Calculated 120 mg/dL (<100); Potassium 3.8 mmol/L (3.4-5.1); Sodium 140 mmol/L (137-145); Triglycerides 311 mg/dL (35-150)
[2024-04-11 13:45] LABS: Prostate Specific Antigen 1.25 ng/mL (0.10-4.00)
== END ==
PROVIDERS: PCP Internal Medicine; Referring Provider Internal Medicine; Visit Provider Internal Medicine
DX: I10 Essential (primary) hypertension (principal); N40.1 Benign prostatic hyperplasia with lower urinary tract symptoms; E78.2 Mixed hyperlipidemia; N13.8 Other obstructive and reflux uropathy; E29.1 Testicular hypofunction; E21.0 Primary hyperparathyroidism; E66.9 Obesity, unspecified; Z68.30 Body mass index [BMI] 30.0-30.9, adult
CPT/HCPCS: 36415; 80048; 80061; 84153; 84450

== ENCOUNTER → 2025-04-16 11:49 | Outpatient (CLI) | payer MEDICARE, OTHER, SELFPAY ==
[2025-04-16 12:20] LABS: Hematocrit 45.0 % (41-53); Hemoglobin 15.6 g/dL (13.5-17.5); Mean Corpuscular HGB Conc 34.6 % (30-36); Mean Corpuscular Hemoglobin 31.7 PG (26-34); Mean Corpuscular Volume 91.4 fL (80-100); Platelet Count 188 X10^3/uL (150-400)
[2025-04-16 12:29] LABS: Hemoglobin A1C% w Est Avg Glu 5.4 % (4.0-6.0)
[2025-04-16 12:39] LABS: Alanine Aminotransferase 24 IU/L (<50); Albumin 4.4 g/dL (3.5-5.0); Albumin Globulin Ratio 1.5 (1.0-2.8); Alkaline Phosphatase 54 U/L (38-126); Blood Urea Nitrogen 26 mg/dL (9-20); Calcium 9.8 mg/dL (8.4-10.2); Carbon Dioxide 27 mmol/L (22-32); Chloride 103 mmol/L (98-107); Cholesterol 192 mg/dL (140-199); Estimated Glomerular Filt Rate > 60 mL/min (>60); Globulin 3.0 g/dL (1.7-4.1); Glucose 104 mg/dL (70-99); HDL Cholesterol 62 mg/dL (40-60); HEMOLYSIS < 15 (0-50); Potassium 3.7 mmol/L (3.4-5.1); Sodium 140 mmol/L (137-145); Total Protein 7.4 g/dL (6.3-8.2); Triglycerides 183 mg/dL (35-150)
[2025-04-16 13:10] LABS: Prostate Specific Antigen 1.16 ng/mL (0.10-4.00)
[2025-04-16 13:26] LABS: TSH w/ Reflex to FT4 0.98 uIU/mL (0.47-4.68)
[2025-04-16 13:30] LABS: Vitamin B12 Reflex MMA if <400 781 pg/mL (239-931)
[2025-04-17 08:36] LABS: Calcium 9.6 mg/dL (8.6-10.2); Parathyroid Hormone, Intact 15 pg/mL (15-65)
== END ==
PROVIDERS: PCP Internal Medicine; Referring Provider Internal Medicine; Visit Provider Internal Medicine
DX: E78.2 Mixed hyperlipidemia (principal); R73.01 Impaired fasting glucose; N40.1 Benign prostatic hyperplasia with lower urinary tract symptoms; I10 Essential (primary) hypertension; N13.8 Other obstructive and reflux uropathy; E21.0 Primary hyperparathyroidism; E53.8 Deficiency of other specified B group vitamins; R79.89 Other specified abnormal findings of blood chemistry
CPT/HCPCS: 36415; 80053; 80061; 82310; 82607; 83036; 83970; 84153; 84403; 84443; 85027